=== PATIENT | male | born 1950 | race Two or more races ===

== ENCOUNTER → 2017-06-22 | Outpatient (CLI) | payer MEDICARE | END | disposition home or self-care (01) | LOC: CRE 08:53 | PROVIDERS: ATTEND Nuclear Medicine Nuclear Cardiology | DX: I25.10 Atherosclerotic heart disease of native coronary artery without angina pectoris (principal); I25.5 Ischemic cardiomyopathy; I77.1 Stricture of artery ==

== ENCOUNTER → 2017-08-08 | Outpatient (CLI) | END | disposition home or self-care (01) ==